=== PATIENT | female | born 1960 | race Caucasian/White ===

== ENCOUNTER 2020-09-04 10:26 | Day surgery (SDC) | payer BC ==
--- NOTE | 2020-09-04 09:54 | ANESTHESIA ---
Pre-Anesthesia VS, & Labs - Diagnosis Recurrent Umbilical Hernia - Procedure Repair Umbilical Hernia Vital Signs: Temp Pulse Resp BP Pulse Ox 36.4 C L 60 18 153/72 H 100 09/04/20 07:20 09/04/20 07:20 09/04/20 07:20 09/04/20 07:20 09/04/20 07:20 Height: 5 ft 7 in Weight (kg): 76.9 kg Body Mass Index: 26.5 BMI Classification: Overweight - NPO >8 hours - Is Patient ?: No Home Medications and Allergies Home Medications: Ambulatory Orders No Known Home Medications 08/28/20 No Known Home Medications 08/28/20 Allergies/Adverse Reactions: Allergies Allergy/AdvReac Type Severity Reaction Status Date / Time oxycodone AdvReac Emesis Verified 08/28/20 09:38 Anes History & Medical History - Anesthetic History Anesthesia Complications: reports: Post-Operative Nausea/Vomiting (With all surgeries) Family history of Anesthesia Complications: Reports (Sisiter with severe N/V) Family history of Malignant Hyperthermia: Denies - Medical History Cardiovascular: reports: None Pulmonary: reports: None Gastrointestinal: reports: None, GERD (occasional) Urinary: reports: None Neuro: reports: None Musculoskeletal: reports: None Endocrine/Autoimmune: reports: None Skin: reports: Rosacea Smoking Status: Never smoker History of Cancer?: Yes (Cervical dysplacia) - Surgical History Orthopedic: Hip replacement Other Past Surgical History: Tonsils Exam General: Alert, Mild distress Dental: WNL Mouth Openin Fingerbreadth Neck Mobility: Reduced Mallampati classification: III Thyromental Distance: 4-6 cm Respiratory: Lungs clear Cardiovascular: Regular rate Mental/Cognitive Status: Alert/Oriented X3 Cognitive Status: Within normal limits Plan Anesthesia Type: General Consent for Procedure(s) Verified and Reviewed: Yes Code Status: Attempt Resuscitation ASA classification: 2-Mild systemic disease Is this case an emergency?: No (Discussed anesthetic and meds for nausea. Consent signed)
[~2020-09-04 10:26] MED LIST: LACTATED RINGERS 1,000 ML IV ONE; LIDOCAINE-MPF 2% 5 ML VIAL IM ONE; MORPHINE PF 5 MG/10 ML VIAL EP ONE
[2020-09-04] MEDS ORDERED: CEFAZOLIN SODIUM IN 0.9 % NACL 2 GM/100 ML BAG IV ONE (11:03)
[2020-09-04] MEDS ORDERED: SCOPOLAMINE PATCH TOP SCH (12:00)
[2020-09-04] MEDS ORDERED: ONDANSETRON 4 MG/2 ML VIAL IVP PRN ×2 (12:01→13:48)
[2020-09-04] MEDS ORDERED: ePHEDrine 50 MG/ML VIAL IVP PRN (12:01)
[2020-09-04] MEDS ORDERED: METOCLOPRAMIDE 10 MG/2 ML VIAL IVP PRN (12:01)
[2020-09-04] MEDS ORDERED: NALOXONE 0.4 MG/ML VIAL IVP PRN (12:01)
[2020-09-04] MEDS ORDERED: ATROPINE ABBOJECT 1 MG/10 ML SYRINGE IVP PRN (12:01)
[2020-09-04] MEDS ORDERED: fentaNYL 100 MCG/2 ML VIAL IVP PRN (12:01)
[2020-09-04] MEDS ORDERED: LIDOCAINE 1%-EPI 1:100000 20 ML MDV ONE (12:44)
[2020-09-04] MEDS ORDERED: BUPIVACAINE 0.5% PF 30 ML VIAL ONE (12:44)
[2020-09-04] MEDS ORDERED: ceFAZolin 1 GM VIAL ONE (12:45)
[2020-09-04] MEDS ORDERED: DEXAMETHASONE 4 MG/ML VIAL IVP ONE (12:59)
[2020-09-04] MEDS ORDERED: PROPOFOL 200 MG/20 ML VIAL IVP ONE (12:59)
[2020-09-04] MEDS ORDERED: ONDANSETRON 4 MG/2 ML VIAL IVP ONE (12:59)
[2020-09-04] MEDS ORDERED: KETOROLAC 30 MG/ML VIAL IVP ONE (12:59)
[2020-09-04] MEDS ORDERED: MIDAZOLAM 2 MG/2 ML VIAL IVP ONE (12:59)
[2020-09-04] MEDS ORDERED: ACETAMINOPHEN 1,000 MG/100 ML 100 ML IV ONE (12:59)
[2020-09-04] MEDS ORDERED: LACTATED RINGERS 1,000 ML IV SCH (13:00)
[2020-09-04] MEDS ORDERED: ceFAZolin 1 GM VIAL IR ONE (13:20)
[2020-09-04] MEDS ORDERED: BUPIVACAINE 0.5% PF 30 ML VIAL SUBQ ONE (13:20)
[2020-09-04] MEDS ORDERED: LIDOCAINE 1%-EPI 1:100000 20 ML MDV SUBQ ONE (13:20)
[2020-09-04] MEDS ORDERED: PROMETHAZINE INJ 12.5 MG in SODIUM CHLORIDE 0.9% 50 ML IV PRN (13:35)
[2020-09-04] MEDS ORDERED: IBUPROFEN 600 MG TABLET PO PRN (13:48)
[2020-09-04] MEDS ORDERED: LACTATED RINGERS 1,000 ML IV ONE (13:48)
[2020-09-04] MEDS ORDERED: ACETAMINOPHEN 325 MG TABLET PO PRN (13:48)
--- NOTE | 2020-09-04 14:36 | ANESTHESIA POST OP EVALUATION ---
Anesthesia Post Eval - Post Anesthesia Eval Vitals: Last Vital Signs Temp 36.3 C L 09/04/20 14:15 Pulse 61 09/04/20 14:15 Resp 14 09/04/20 14:15 BP 105/64 09/04/20 14:15 Pulse Ox 100 09/04/20 14:15 CV Function Including HR & BP: positive: Stable Pain Control: positive: Satisfactory Nausea & Vomiting: positive: Negative Mental Status: positive: Baseline Respiratory Status: Airway Patent Hydration Status: Satisfactory (Awake, alert, no nausea. Pleased with care. Taking PO.) Anesthesia Complications: positive: None
[2020-09-04 15:31] VITALS: BP 110/55
--- NOTE | 2020-09-05 10:26 | OPERATIVE REPORT ---
Operative Report - General Procedure Date: 09/04/20 Planned Procedure: Repair of recurrent umbilical hernia Pre-Op Diagnosis: Recurrent umbilical hernia Procedure Performed: Repair of recurrent umbilical hernia Post Op Diagnosis: Recurrent umbilical hernia - Procedure Note Primary Surgeon: Armida Anesthesia Provider: HELIO Ann Pathology: None Estimated Blood Loss (mL): 10 Indications: Painful incarcerated, recurrent umbilical hernia Findings: 2 cm defect with permanent sutures imbedded in the fascia to the right lateral side of the defect. Complications: None apparent - Other Other Information/Narrative: After the informed consent, the patient was taken to the operating room and placed in supine position on the operating table. Following successful induction of general anesthesia, appropriate padding all bony prominences, and placement appropriate monitors, the abdomen was prepped and draped in the standard surgical fashion. A timeout was held per scope protocol. All elements of the surgical safety checklist were followed before, during, after the procedure. Following infiltration with local anesthetic to create a field block, an incision was created directly over the palpable mass superior to the umbilicus. This was carried through the skin subcutaneous tissue to umbilical hernia sac at the level. The sac itself was approximately 3 to 4 cm in greatest dimension. This was carefully dissected free from surrounding structures and eased back into the abdominal cavity. Contents included only preperitoneal fat and omentum. The opening was measured at just under 2 cm. Prominent prominent sutures could be seen in bed and fashioned to the right lateral side of the defect. The surgeon's finger was inserted into the defect and the peritoneal cavity palpated to be sure there was space on the anterior abdominal wall once I was satisfied that there was plenty of room, we turned our attention to repair. I elected to repair the defect with a 6 cm Ccur mesh implant.This was dipped briefly in Ancef containing function and deployed into the defect. It was carefully flattened in the preperitoneal space. Great care was taken to be sure there was no peritoneal or peritoneal structures caught between the mesh and the abdominal wall. Once positioning was felt to be ideal, the tails of the mesh implant been transiently sewn to the fascia in the midline. Was checked for hemostasis. Was irrigated with Ancef containing solution and aspirated free of all fluid and particulate matter. The incision was then closed in 2 layers with Vicryl and Monocryl suture and Dermabond applied to the surface. All sponge, needle, and instrument counts were correct at the conclusion of the case. The patient was allowed to awaken from anesthesia without difficulty and taken to the postanesthesia care unit in good condition.
== END 2020-09-04 10:27 | disposition home or self-care (01) ==
LOC: SDS 10:26
PROVIDERS: ATTEND Surgery
DX: K42.9 Umbilical hernia without obstruction or gangrene (principal)
CPT/HCPCS: 49585; C1781; J0131; J0690; J2274; J3490; J7120